=== PATIENT | male | born 1985 | race African-American/Black ===

== ENCOUNTER 2018-08-19 12:35 | Day surgery (SDC) | payer OTHER ==
[2018-08-19] MEDS ORDERED: PROPOFOL 40 ML (15:26)
[2018-08-19] MEDS ORDERED: LIDOCAINE 2% (SDV) 5 ML INJ (15:26)
== END 2018-08-19 16:27 | disposition home or self-care (01) ==
LOC: GIL 12:35
DX: K29.50 Unspecified chronic gastritis without bleeding (principal); K21.0 Gastro-esophageal reflux disease with esophagitis
CPT/HCPCS: 43239; 88305